=== PATIENT | male | born 1985 | race Caucasian/White ===

== ENCOUNTER 2021-07-26 21:41 | Emergency (ER) | payer SELFPAY ==
[2021-07-26 21:53] VITALS: BP 152/66; PULSE 96; RESP 14; O2SAT 95
--- NOTE | 2021-07-26 22:20 | ED.AMS ---
HPI - Altered Mental Status General Chief Complaint: Altered Mental Status Stated Complaint: overdose, using heroin. wants rehab Time Seen by Provider: 07/26/21 22:01 Source: EMS History of Present Illness HPI narrative: Patient is brought in by EMS for evaluation of drug rehab. Per EMS patient states he abuses methamphetamines and heroin. He would like to go to the ER for assistance with drug rehab. Patient was somnolent on EMS evaluation he declines any therapeutic interventions and was transferred to the ER for further management. Patient mumbles when asked questions and does not respond appropriately Review of Systems Review of Systems: ROS unobtainable: Yes unobtainable due to mental status Exam Narrative: GENERAL: Well-appearing, well-nourished, and in no acute distress. HEAD: Normocephalic, atraumatic. EYES: Pupils are pinpoint minimally reactive ENT: Nares clear, no rhinorrhea or epistaxis. Mucous membranes moist. NECK: Supple. No masses. No JVD CHEST: Clear to auscultation. No respiratory distress. No wheezes rales or rhonchi HEART: Regular rate and rhythm. No murmur heard. Normal peripheral pulses. ABDOMEN: Soft, nontender, nondistended EXTREMITIES: Normal range of motion. No edema. SKIN: Warm, dry, no rash. NEURO: No focal deficits. Somnolent PSYCH: Normal mood and affect. Course Reevaluation(s) Reevaluation #1: Patient became aggressive after Narcan and declined further evaluation patient signed out AMA Date: 07/26/21 Time: 22:21 Vital Signs Vital signs: Vital Signs Pulse Rate 96 07/26/21 21:53 Respiratory Rate 14 07/26/21 21:53 Blood Pressure 152/66 H 07/26/21 21:53 Pulse Oximetry 95 07/26/21 21:53 Pulse Rate 96 07/26/21 21:53 Respiratory Rate 14 07/26/21 21:53 Blood Pressure 152/66 H 07/26/21 21:53 Pulse Oximetry 95 07/26/21 21:53 MDM - Altered Mental Status Lab Data Result diagrams: 07/26/21 22:19 07/26/21 22:19 Labs: Lab Results 07/26/21 07/26/21 07/26/21 Range/Units 22:19 22:19 22:19 WBC 15.2 H (4.5-10.0) K/mm3 RBC 4.82 (4.6-6.20) M/mm3 Hgb 14.7 (14.0-18.0) g/dL Hct 42.7 (42.0-52.0) % MCV 88.6 (80-100) fl MCH 30.5 (26-34) pg MCHC 34.4 (32-36) g/dl RDW 12.4 (11.5-14.5) % Plt Count 234 (150-375) k/mm3 MPV 10.5 H (7.4-10.4) fl Immature Gran % (Auto) 0.7 H (0-0.5) % Neut % (Auto) 81.3 H (45.5-73.1) % Lymph % (Auto) 11.2 L (18.3-44.2) % Williams % (Auto) 5.2 (2.6-8.5) % Eos % (Auto) 1.1 (0-4.4) % Baso % (Auto) 0.5 (0.2-1.2) % Lymph # (Auto) 1.71 (0.9-3.2) K/mm3 Williams # (Auto) 0.8 H (0.1-0.6) K/mm3 Eos # (Auto) 0.2 (0-0.3) K/mm3 Baso # (Auto) 0.1 (0.0-0.1) K/mm3 Abs Immat Gran (auto) 0.10 H (0.00-0.031) K/mm3 Absolute Neuts (auto) 12.4 H (1.3-6.7) K/mm3 Absolute Nucleated RBC 0.0 (0.0-0.012) K/mm3 Nucleated RBC % 0.0 (0.0-0.2) % Sodium 139 (137-145) mmol/L Potassium 3.7 (3.4-5.0) mmol/L Chloride 104 (98-107) mmol/L Carbon Dioxide 27 (22-30) mmol/L Anion Gap 8 (8-16) mmol/L BUN 19 (9-20) mg/dL Creatinine 0.90 (0.7-1.3) mg/dL Estim Creat Clear Calc 99 ml/min Estimated GFR > 60 (59 - ) Glucose 49 L* (65-110) mg/dL Calcium 8.7 (8.4-10.2) mg/dL Total Bilirubin 1.3 (0.2-1.3) mg/dL AST 50 (17-59) U/L ALT 37 (4-50) U/L Alkaline Phosphatase 103 (38-126) U/L Total Protein 8.0 (6.3-8.2) g/dL Albumin 4.4 (3.5-5.1) g/dL Salicylates < 1.0 L (2-20) mg/dL Acetaminophen < 10 L (10-30) ug/mL Ethyl Alcohol < 10 (<10) mg/dL Discharge Plan Discharge Clinical Impression: Altered mental status, Narcotic abuse Patient Disposition: Left Against Medical Advice Condition: Improved Follow-up/Referrals: UNKNOWN,DOCTOR [Primary Care Provider] - Time of Disposition: 22:22
[2021-07-26 22:24] LABS: Basophils Absolute Auto 0.1 K/mm3 (0.0-0.1); Basophils Percent Auto 0.5 % (0.2-1.2); Eosinophils Absolute Auto 0.2 K/mm3 (0-0.3); Eosinophils Percent Auto 1.1 % (0-4.4); Hematocrit 42.7 % (42.0-52.0); Hemoglobin 14.7 g/dL (14.0-18.0); Immature Granulocyte Percent A 0.7 % (0-0.5); Lymphocytes Absolute Auto 1.71 K/mm3 (0.9-3.2); Lymphocytes Percent Auto 11.2 % (18.3-44.2); Mean Corpuscular HGB Conc 34.4 g/dl (32-36); Mean Corpuscular Hemoglobin 30.5 pg (26-34); Mean Corpuscular Volume 88.6 fl (80-100); Mean Platelet Volume 10.5 fl (7.4-10.4); Monocytes Absolute Auto 0.8 K/mm3 (0.1-0.6); Monocytes Percent Auto 5.2 % (2.6-8.5); Neutrophils Absolute Auto 12.4 K/mm3 (1.3-6.7); Neutrophils Percent Auto 81.3 % (45.5-73.1); Platelet Count Result 234 k/mm3 (150-375); Red Blood Count 4.82 M/mm3 (4.6-6.20); Red Cell Distribution Width 12.4 % (11.5-14.5); White Blood Count 15.2 K/mm3 (4.5-10.0)
--- NOTE | 2021-07-26 22:24 | PC.NURSE ---
pt alert and oriented at this time after 0.4 mg narcan given IV. pt yelling because this RN did not give water, pt stating Give me some fucking water this is bullshit, if I cant have water I just want to go home. per Dr Coronel pt okay to be signed out AMA. IV removed, pt signed out AMA at this time.
--- NOTE | 2021-07-26 22:26 | PC.NURSE ---
2x ED RN at bedside, pt falling asleep between answering questions, mumbling. IV established by another RN and immediately after Narcan administered by primary RN, pt began to curse at staff, yelling I didn't want Narcan! Why would you give me that? Raising voice. Pt got out of bed unassisted and ambulated to doorway of room with steady, even, unassisted gait. Appeared a/o to person, place, and time. Requested to leave. ED MD aware.
[2021-07-26] MEDS: NALOXONE HCL 0.4 MG/ML VIAL IV PUSH (22:29)
[2021-07-26 22:34] LABS: Acetaminophen < 10 ug/mL (10-30); Ethanol < 10 mg/dL (<10); Salicylate < 1.0 mg/dL (2-20)
[2021-07-26 22:39] LABS: Alanine Aminotransferase 37 U/L (4-50); Albumin Level 4.4 g/dL (3.5-5.1); Alkaline Phosphatase 103 U/L (38-126); Anion Gap 8 mmol/L (8-16); Aspartate Amino Transferase 50 U/L (17-59); Bilirubin,Total 1.3 mg/dL (0.2-1.3); Blood Urea Nitrogen 19 mg/dL (9-20); Calcium 8.7 mg/dL (8.4-10.2); Carbon Dioxide 27 mmol/L (22-30); Chloride 104 mmol/L (98-107); Estimated CRCL calculation 99 ml/min; Estimated Glomerular Filt Rate > 60; Glucose 49 mg/dL (65-110); Potassium 3.7 mmol/L (3.4-5.0); Sodium 139 mmol/L (137-145)
== END 2021-07-26 22:28 | disposition left against medical advice (07) ==
PROVIDERS: Emergency Provider Emergency Medicine
DX: R41.82 Altered mental status, unspecified (principal); F11.10 Opioid abuse, uncomplicated; F15.10 Other stimulant abuse, uncomplicated
CPT/HCPCS: 36415; 80053; 80307; 85025; 96374; 99284; J2310